=== PATIENT | male | born 1945 | race Caucasian/White ===

== ENCOUNTER → 2016-07-14 | Outpatient (CLI) | payer OTHER, MEDICARE ==
[~2016-07-14] MED LIST: IOPAMIDOL (ISOVUE-300) 100 ML BTL IV ONE
--- NOTE | 2016-07-14 14:21 | CT ---
CT Scan of Neck Soft Tissues (With Contrast Enhancement) at 1134 hours History: C32.9, malignant neoplasm of the larynx. Squamous cell carcinoma of the larynx. Smoker. COMPARISON: None available. Technique: Axial computed tomographic images of the neck soft tissues obtained from the sternoclavicu lar joint to the skull base during the uneventful intravenous administration of 100 mL Isovue-300 con trast. Dose reduction techniques were utilized. Findings: Centrilobular emphysema noted in the lung apices. Slightly lobulated contour of bilateral t rue vocal cord regions without definite destructive osseous lesions of the thyroid or cricoid cartila ge. Airway appears patent. Paranasal sinuses are clear. Bilateral parotid and submandibular glands appear homogeneous without ma sses. There are several scattered predominantly subcentimeter neck lymph nodes in the posterior cervi wale spaces, submental spaces without significant adenopathy. Mild atherosclerotic calcification of th e carotid arteries. No evidence of jugular vein thrombosis. Thyroid gland appears homogeneous without masses or enlargement. Previous anterior cervical diskectomy at C3-C4 with C5-C6 and C6-C7 moderate degenerative disk disease, posterior laminectomies at C3 and C4 with transpedicular screws. No defini te destructive osseous lesions. Impression: 1. Nodular contour of both sides of the true vocal cord, which is nonspecific. 2. No definite destruction of the cricoid or thyroid cartilage. 3. Several nonspecific predominantly subcentimeter scattered bilateral neck lymph nodes anteriorly an d posteriorly without significant adenopathy. 4. No definite parotid or submandibular masses. 5. Centrilobular emphysema at the lung apices.
== END ==
LOC: CIMAGING 11:02
PROVIDERS: ATTEND Otolaryngology
DX: J43.9 Emphysema, unspecified (principal); J38.2 Nodules of vocal cords; M50.322 Other cervical disc degeneration at C5-C6 level; M50.323 Other cervical disc degeneration at C6-C7 level; C32.9 Malignant neoplasm of larynx, unspecified
CPT/HCPCS: 70491; Q9967

== ENCOUNTER → 2016-09-26 | Outpatient (CLI) | payer OTHER, MEDICARE | LOC: CIMAGING 09:48 | PROVIDERS: ATTEND Internal Medicine | DX: M79.672 Pain in left foot (principal) | CPT/HCPCS: 73630-PO; G0463-PO ==

== ENCOUNTER 2016-11-25 07:00 | Inpatient (IN) | payer OTHER, MEDICARE ==
[2016-11-25] MEDS ORDERED: POLYMYXIN B SULFATE 500,000 UNIT/10 ML SYR IRR ONE (07:02)
[2016-11-25] MEDS ORDERED: BUPIVACAINE 0.5% 30 ML SDV ONE (07:02)
[2016-11-25] MEDS ORDERED: BACITRACIN 50,000 UNITS/10 ML SYR IRR ONE (07:02)
[2016-11-25] MEDS ORDERED: LIDOCAINE 1% 2 ML INJ ONE (07:38)
[2016-11-25] MEDS ORDERED: POVIDONE-IODINE 20 ML in SODIUM CL IRRIG SOLUTION 500 ML IRR ONE (08:00)
[2016-11-25] MEDS ORDERED: ACETAMINOPHEN 500 MG TAB PO ONE (08:00)
[2016-11-25] MEDS ORDERED: CHLORHEXIDINE GLUC HIBICLENS 118 ML BTL TP ONE (08:00)
[2016-11-25 08:30] LABS: INR 0.99 (0.83-1.16)
[2016-11-25] MEDS ORDERED: PROPOFOL 200 MG/20 ML VIAL ONE (08:35)
[2016-11-25] MEDS ORDERED: fentaNYL 100 MCG/2 ML INJ ONE ×5 (08:35→11:37)
[2016-11-25] MEDS ORDERED: LIDOCAINE 2% 100 MG/5 ML SYR ONE (08:36)
[2016-11-25] MEDS ORDERED: ROCURONIUM 50 MG/5 ML VIAL ONE (08:36)
[2016-11-25] MEDS ORDERED: MIDAZOLAM 2 MG/2 ML VIAL ONE (08:39)
[2016-11-25] MEDS ORDERED: LIDOCAINE 1% 5 ML SDV ID PRN (08:49)
[2016-11-25] MEDS ORDERED: LR 1,000 ML IV ONE (08:49)
[2016-11-25] MEDS ORDERED: THROMBIN (BOVINE) 5,000 UNIT VIAL TP ONE (08:58)
[2016-11-25] MEDS ORDERED: CALCIUM CHLORIDE 1 GM/10 ML INJ ONE (08:59)
[2016-11-25] MEDS ORDERED: CLINDAMYCIN 900 MG/DEXTROSE 50 ML IV ONE (09:00)
[2016-11-25] MEDS ORDERED: BUPIVACAINE/EPI 0.5% 30 ML SDV ONE (10:39)
[2016-11-25] MEDS ORDERED: KETOROLAC 30 MG/1 ML SDV ONE (10:40)
[2016-11-25] MEDS ORDERED: DEXAMETHASONE 4 MG/ML VIAL ONE ×2 (10:42)
[2016-11-25] MEDS ORDERED: TEMAZEPAM 15 MG CAP PO PRN (11:18)
[2016-11-25] MEDS ORDERED: LACTULOSE 20 GM/30 ML UDCUP PO PRN (11:18)
[2016-11-25] MEDS ORDERED: diphenhydrAMINE 25 MG CAP PO PRN (11:18)
[2016-11-25] MEDS ORDERED: TAPENTADOL HCL 50 MG TAB PO PRN (11:18)
[2016-11-25] MEDS ORDERED: PHARMACY PAIN CONSULT 1 EA MISC PRN (11:18)
[2016-11-25] MEDS ORDERED: ONDANSETRON 4 MG/2 ML VIAL IVP PRN (11:18)
[2016-11-25] MEDS ORDERED: ONDANSETRON DISINTEGRATING 4 MG TAB PO PRN (11:18)
[2016-11-25] MEDS ORDERED: METOCLOPRAMIDE 10 MG/2 ML VIAL IVP PRN (11:18)
[2016-11-25] MEDS ORDERED: PROMETHAZINE HCL 25 MG/ML INJ IVP PRN (11:18)
[2016-11-25] MEDS ORDERED: DIPHENOXYLATE/ATROPINE LOMOTIL 1 TAB PO PRN (11:18)
[2016-11-25] MEDS ORDERED: BISACODYL 10 MG SUPP PR PRN (11:18)
[2016-11-25] MEDS ORDERED: PROMETHAZINE HCL 25 MG SUPPR PR PRN (11:18)
[2016-11-25] MEDS ORDERED: MAGNESIUM HYDROXIDE 30 ML UDCUP PO PRN (11:18)
--- NOTE | 2016-11-25 11:18 | POSTOPPROG ---
Post Op Note Date of Operation: 11/25/16 Surgeon: Debbie Barfield Paper Tube Machine Operator: kee Anesthesiologist: imani Anesthesia: GET(General Endotracheal) Pre-op Diagnosis: l subtalar oa and os trigonum impingement Procedure: l subtalar fusion and os trigonum exc with fluoro Inf/Abcess present in the surg proc area at time of surgery?: No Depth: Deep Incisional (Fascial) EBL: 50-100
[2016-11-25] MEDS ORDERED: ONDANSETRON 4 MG/2 ML VIAL ONE (11:54)
[2016-11-25] MEDS ORDERED: oxyCODONE IR 5 MG TAB ONE ×2 (12:05→12:27)
--- NOTE | 2016-11-25 13:13 | GOP ---
[f rep st] OPERATIVE REPORT DATE OF OPERATION: 11/25/2016 SURGEON: Debbie Barfield MD DISPLAY DIRECTOR: YANIRA PatA, LSA, whose presence was medically necessary. ANESTHESIA: Endotracheal intubation. 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 PROCEDURE PERFORMED: Left open subtalar fusion with fluoroscopy and os trigonum excision with fluor oscopy. FINDINGS: INDICATIONS: This is a 71-year-old male with a several-month history of left ankle and foot pain, w orsening with use and with time, despite multiple conservative measures. MRI revealed severe osteoa rthritic changes in the subtalar joint, along with a large os trigonum, with increased uptake second diamond to impingement and plantar flexion. He wishes to have surgery in order to resolve the problem. DESCRIPTION OF PROCEDURE: The patient was brought to the operating room after the left side had bee n identified as the correct side by the patient, nurse, and physician. Once in the operating room, he was placed under general anesthesia using endotracheal intubation. Once asleep, he was placed in a lazy lateral position with the left side up. He had a tourniquet placed around the upper portion of the left calf with the left lower extremity sterilely prepped and draped in the usual fashion us ing GSI solution. Once prepped and draped, the limb was exsanguinated, tourniquet inflated to 250 m mHg. A curvilinear incision was made, starting at the base of the 4th metatarsal and extending bene ath the fibula, toward the Achilles, in order to gain enough access on the os trigonum. Sharp disse ction was carried down through the skin and subcutaneous layers. Blunt dissection was done around t he peroneal tendons, with dissection carried onto the top of the calcaneus to guide dissection towar d the posterior portion of the talus. However, due to what appeared to be bleeding associated with venous tourniquet, the tourniquet was released at 18 minutes in order to allow further dissection wi thout having the extensive amount of venous bleeding, and it did indeed decrease bleeding. Once a p ortion of the os trigonum had been excised, attention was turned to the subtalar joint, which was ex posed, and a laminar nanny babysitter placed within the subtalar joint. Curette was used to remove any phuong ining cartilage on the subtalar joint with an osteotome used to remove the far medial portion of the os trigonum from below. Osteotome was used to score the undersurface of the talus at its concave p ortion, and onto the superior portion of the calcaneus on its convex portion, until achieving bleedi ng bone. A portion of bone removed from the os trigonum was morcellized, placed within the subtalar joint, and once in the subtalar joint, joint was compressed. It was checked under fluoroscopy, not ed to have good fit of the 2 joints. A guidewire was placed through the calcaneus posteriorly just above the glabrous border, and under fluoroscopy was introduced perpendicularly across the subtalar joint into the talus. It was checked using fluoroscopy on the AP and lateral projections to ensure proper placement within the talus. The 2 guidewires were measured to be at 80 and 85 mm. They were over drilled at the calcaneal surface, and then 6.5 mm cannulated screws were then drilled through the calcaneus into the talus, achieving compression across the talocalcaneal joint. Once completed, fluoroscopy was again used to check to ensure proper placement of the screws. Once this was ensure d, the wound was thoroughly irrigated with antibiotic solution. Plasma gel was placed within the giordano btalar joint, and the wound was then closed using 0 Vicryl suture in an inverted interrupted stitch for the deep subcutaneous layers, 2-0 Vicryl sutures for the subcutaneous layers, and a 3-0 V-Loc giordano ture for the skin. 2-0 Prolene was used to close the puncture wounds associated with the calcaneal incisions. Wound was dressed with Steri-Strips, Xeroform, 4 x 4's, wrapped in Kerlix. Leg was comp letely undraped in the operating room. Tourniquet was removed from the calf. Zane wrap was placed a round the foot and ankle. He was then placed in a Cam walker boot in neutral position. 10 cc of Ma rcaine was infused around the lateral wound with 5 cc around the heel. He was then woken up, extuba lawrence, transferred onto a stretcher, and sent to recovery room in good condition. TOURNIQUET TIME: 18 minutes. /[id number]/MODL
[2016-11-25] MEDS: CYCLOBENZAPRINE 10 MG TAB PO PRN (14:15)
[2016-11-25] MEDS: ACETAMINOPHEN 325 MG TAB PO SCH ×3 (14:43→23:35)
[2016-11-25] MEDS: traMADol 50 MG TAB PO SCH ×3 (14:48→23:35)
[2016-11-25] MEDS: oxyCODONE IR 5 MG TAB PO PRN ×2 (15:06→20:25)
[2016-11-25] MEDS ORDERED: NALOXONE HCL 0.4 MG/ML INJ IVP PRN (16:26)
[2016-11-25] MEDS: HYDROmorphONE/DILAUDID 6 MG/30 ML PCA IV PRN ×2 (16:41→23:36)
[2016-11-25] MEDS: CLINDAMYCIN 600 MG/DEXTROSE 50 ML IV SCH (17:38)
[2016-11-25] MEDS: FAMOTIDINE 20 MG TAB PO SCH (20:24)
[2016-11-25] MEDS: SENNOSIDES/DOCUSATE SODIUM TAB PO SCH (20:25)
[2016-11-26] MEDS: CYCLOBENZAPRINE 10 MG TAB PO PRN ×2 (00:51→12:29)
[2016-11-26] MEDS: CLINDAMYCIN 600 MG/DEXTROSE 50 ML IV SCH ×2 (00:51→10:02)
[2016-11-26 04:48] LABS: HEMATOCRIT 42.3 % (40.0-51.0); HEMOGLOBIN 14.4 g/dL (13.7-17.5)
[2016-11-26] MEDS: ACETAMINOPHEN 325 MG TAB PO SCH ×3 (05:30→17:56)
[2016-11-26] MEDS: traMADol 50 MG TAB PO SCH ×3 (05:30→17:56)
[2016-11-26] MEDS: HYDROmorphONE/DILAUDID 6 MG/30 ML PCA IV PRN ×2 (05:59→22:14)
[2016-11-26] MEDS: FAMOTIDINE 20 MG TAB PO SCH ×2 (07:56→20:35)
[2016-11-26] MEDS: oxyCODONE IR 5 MG TAB PO PRN ×2 (07:56→12:27)
[2016-11-26] MEDS: SENNOSIDES/DOCUSATE SODIUM TAB PO SCH ×2 (07:57→20:35)
[2016-11-26] MEDS: POLYETHYLENE GLYCOL 3350 17 GM PKT PO PRN (07:57)
[2016-11-26] MEDS: LR 1,000 ML IV SCH ×2 (12:33→20:34)
--- NOTE | 2016-11-26 14:38 | SOAPPROG ---
SOAP Progress Note Assessment/Plan: Assessment: Plan: Subjective: states he has pain and can't swallow dressing C&D with foot grossly NVI although mild decrease in sensation cont NWB DC abx swallow eval Objective: Vital Signs Temp Pulse Resp BP Pulse Ox 36.6 C 73 18 102/56 L 92 11/26/16 11:34 11/26/16 11:34 11/26/16 11:34 11/26/16 11:34 11/26/16 11:34 Laboratory Results 11/26/16 04:19 11/25/16 11/26/16 11/27/16 05:59 05:59 05:59 Intake Total 2330 Output Total 725 Balance 1605 PT 13.0 SEC (12.0-15.0) 11/25/16 08:05 INR 0.99 (0.83-1.16) 11/25/16 08:05 ICD10 Worksheet Patient Problems: Problems Problem Status Onset Status post cervical arthrodesis Acute
[2016-11-27] MEDS: ACETAMINOPHEN 325 MG TAB PO SCH ×5 (00:26→23:08)
[2016-11-27] MEDS: traMADol 50 MG TAB PO SCH ×6 (00:28→23:09)
[2016-11-27] MEDS: LR 1,000 ML IV SCH (04:14)
[2016-11-27] MEDS: HYDROmorphONE/DILAUDID 6 MG/30 ML PCA IV PRN ×2 (04:19→09:07)
[2016-11-27 05:29] LABS: HEMOGLOBIN 13.7 g/dL (13.7-17.5)
[2016-11-27] MEDS: FAMOTIDINE 20 MG TAB PO SCH ×3 (07:58→21:00)
[2016-11-27] MEDS: SENNOSIDES/DOCUSATE SODIUM TAB PO SCH ×3 (07:58→20:59)
[2016-11-27] MEDS: oxyCODONE IR 5 MG TAB PO PRN ×3 (11:11→23:09)
[2016-11-27] MEDS: CYCLOBENZAPRINE 10 MG TAB PO PRN (13:27)
--- NOTE | 2016-11-27 18:53 | SOAPPROG ---
SOAP Progress Note Assessment/Plan: Assessment: Plan: Subjective: states his pain is better controlled with dilaudid and that is allowed to swallow solids more than liquids dressing C&D with toes grossly NVI plan for DC in morning. Objective: Vital Signs Temp Pulse Resp BP Pulse Ox 36.9 C 66 18 119/64 96 11/27/16 15:35 11/27/16 15:35 11/27/16 15:35 11/27/16 15:35 11/27/16 15:35 Laboratory Results 11/27/16 04:33 11/26/16 11/27/16 11/28/16 05:59 05:59 05:59 Intake Total 2330 1500 Output Total 725 400 Balance 1605 1500 -400 PT 13.0 SEC (12.0-15.0) 11/25/16 08:05 INR 0.99 (0.83-1.16) 11/25/16 08:05 ICD10 Worksheet Patient Problems: Problems Problem Status Onset Status post cervical arthrodesis Acute
[2016-11-27] MEDS ORDERED: HYDROmorphONE/DILAUDID 4 MG TAB PO PRN (19:01)
[2016-11-28] MEDS: HYDROmorphONE/DILAUDID 4 MG TAB PO PRN ×3 (03:04→15:03)
[2016-11-28] MEDS: traMADol 50 MG TAB PO SCH ×3 (05:45→17:33)
[2016-11-28] MEDS: ACETAMINOPHEN 325 MG TAB PO SCH ×3 (05:45→17:32)
[2016-11-28 07:38] VITALS: RESP 14
[2016-11-28] MEDS: SENNOSIDES/DOCUSATE SODIUM TAB PO SCH (08:02)
[2016-11-28] MEDS: CYCLOBENZAPRINE 10 MG TAB PO PRN (08:03)
[2016-11-28] MEDS: POLYETHYLENE GLYCOL 3350 17 GM PKT PO PRN (08:04)
[2016-11-28] MEDS: FAMOTIDINE 20 MG TAB PO SCH (08:04)
[2016-11-28 11:29] VITALS: PULSE 63; TEMP 98.5; O2SAT 96
--- NOTE | 2016-11-28 15:47 | PDIAF ---
- Diagnosis Code Status: Full Code - Medication Management Discharge Medications: Medications to Continue on Transfer Sertraline HCl [Zoloft 50mg (*)] 50 mg PO DAILY 06/21/14 [Last Taken 11/25/16] Hydrocodone/Acetaminophen [[place] 7.5-325 Tablet] 1 each PO Q4-6PRN PRN 06/18/16 [Last Taken 11/24/16] Minocycline HCl [Minocin 50 mg (*)] 50 mg PO BID 06/18/16 [Last Taken 11/25/16] Warfarin Sodium [Coumadin 7.5MG (*)] 7.5 mg PO DAILY16 06/18/16 [Last Taken ] Acetaminophen [Tylenol 325mg (*)] 325 mg PO DAILY PRN 11/25/16 [Last Taken 11/24] Acetaminophen [Tylenol 325mg (*)] 650 mg PO Q6HRS #0 tab 11/27/16 [Last Taken Unknown] HYDROmorphone HCL [Dilaudid 4 mg (*)] 4 mg PO Q4HRS PRN #0 tab 11/27/16 [Last Taken Unknown] HYDROmorphone HCL [Dilaudid 4 mg (*)] 4 mg PO Q4HRS PRN #30 tab 11/27/16 [Last Taken Unknown] oxyCODONE CR [Oxycontin] 10 mg PO Q12 #20 tab 11/27/16 [Last Taken Unknown] Discharge Medications: Refer to the Discharge Home Medication list for PRN reason. PICC Care - Routine: N/A - Orders Services needed: Home Care, Registered Nurse, Physical Therapy Home Care Face to Face: I certify that this patient was under my care and that I had the required [id number] encounter meeting the encounter requirements on the discharge day. My findings support the fact that the patient is homebound as defined in CMS Chapter 7 Medicare Benefits Manual 30.1.1, The condition of the patient is such that there exists a normal inability to leave home and consequently, leaving home would require a considerable and taxing effort. Diet Recommendation: other Diet Texture: Honey Thick Liquids - Follow Up Care Current Providers and Referrals: Alvin Bonds MD [Primary Care Provider] - Debbie Barfield MD [Medical Doctor] -
[2016-11-28 17:38] VITALS: BP 144/88
== END 2016-11-28 17:55 | DRG 505 ==
LOC: FSGY 07:00 → INTOOBSV 11:19 → F3N 11:19 → OBSVTOIN 11-26 19:50
PROVIDERS: ADMIT Orthopaedic Surgery; ATTEND Orthopaedic Surgery
PROC: 0SGJ04Z Fusion of Left Tarsal Joint with Internal Fixation Device, Open Approach (ICD-10-PCS; principal; 2016-11-25 08:45)
PROC: 0QBM0ZZ Excision of Left Tarsal, Open Approach (ICD-10-PCS; principal; 2016-11-25 08:45)
DX: M19.072 Primary osteoarthritis, left ankle and foot (principal); M25.872 Other specified joint disorders, left ankle and foot; M24.072 Loose body in left ankle; R13.10 Dysphagia, unspecified
CPT/HCPCS: 92610-GN; 92611-GN; 97116-GP; 97162-GP; 97165-GO; 97535-GO; C1713; C1769; G8978-GP-CK; G8979-GP-CI; G8987-GO-CK; G8988-GO-CI; G8989-GO-CJ; G8996-GN-CH; G8996-GN-CJ; G8997-GN-CH; G8997-GN-CI; G8998-GN-CH; J1100; J1170; J1885; J2001; J2250; J2405; J2704; J3010

== ENCOUNTER → 2017-02-05 | Outpatient (CLI) | payer OTHER, MEDICARE ==
[~2017-02-05] MED LIST changes: -IOPAMIDOL (ISOVUE-300) 100 ML BTL IV ONE; +IOPAMIDOL (ISOVUE-300) 100 ML BTL ONE
== END ==
LOC: CIMAGING 14:50
PROVIDERS: ATTEND Internal Medicine
DX: T85.79XA Infection and inflammatory reaction due to other internal prosthetic devices, implants and grafts, initial encounter (principal); K43.9 Ventral hernia without obstruction or gangrene
CPT/HCPCS: 74177; Q9967; 82565-PO

== ENCOUNTER → 2017-07-24 | Outpatient (CLI) | payer OTHER | LOC: FIMAGING 15:58 | PROVIDERS: ATTEND Orthopaedic Surgery | DX: M19.072 Primary osteoarthritis, left ankle and foot (principal); R60.9 Edema, unspecified ==

== ENCOUNTER → 2018-02-09 | Outpatient (CLI) | payer OTHER | LOC: CIMAGING 14:09 | PROVIDERS: ATTEND Internal Medicine | DX: R60.9 Edema, unspecified (principal); M25.561 Pain in right knee ==

== ENCOUNTER 2018-04-13 09:01 | Day surgery (SDC) | payer OTHER ==
--- NOTE | 2018-04-13 05:44 | GHP ---
CURRENT COMPLAINT: Left foot pain. HISTORY OF PRESENT ILLNESS: The patient is a 73-year-old male who had previously undergone a left fo ot subtalar fusion nearly 18 months ago. He states that the heal itself had been doing fine, but he has developed pain into the heel around the area of the screw heads. He would like to have them jeff juan alberto. ALLERGIES: Include Compazine. CURRENT MEDICATIONS: Include buprenorphine, diazepam, diclofenac, furosemide, lorazepam, minocycline , mupirocin, pantoprazole, prednisone, ranitidine, sertraline, Suboxone and warfarin. PAST MEDICAL HISTORY: Primary medical problems include arthritis, hepatitis, ulcers. PAST SURGICAL HISTORY: Surgeries include spine surgery, right arm surgery and a subtalar arthrodesis on the left side. SOCIAL HISTORY: He is a 1 pack-a-day smoker. He is not a drinker. PHYSICAL EXAMINATION: EYES: Pupils are equal, round, and reactive to light. CHEST: Clear to auscu ltation. HEART: Regular rate and rhythm. ABDOMEN: Soft and nontender. EXTREMITIES: He has no mo tion of the subtalar joint, as expected, but is tender to the palpable screw heads noted in the heel. ASSESSMENT AND PLAN: Patient is status post a left foot subtalar fusion with tender hardware. The p yen is to take him to the operating room to undergo a hardware removal of the left foot. /[id number]/MODL
[2018-04-13] MEDS ORDERED: LR 1,000 ML IV SCH (09:08)
[2018-04-13] MEDS ORDERED: ACETAMINOPHEN 500 MG TAB PO ONE (09:08)
[2018-04-13] MEDS ORDERED: VANCOMYCIN PHARMACY TO DOSE MISC ONE (09:08)
[2018-04-13] MEDS ORDERED: LR 1,000 ML IV ONE (09:11)
[2018-04-13] MEDS ORDERED: VANCOMYCIN 1.5 GM in NS 250 ML IV ONE (09:30)
[2018-04-13] MEDS ORDERED: BUPIVACAINE 0.5% 30 ML SDV ONE (10:20)
[2018-04-13] MEDS ORDERED: ONDANSETRON 4 MG/2 ML VIAL ONE (10:55)
[2018-04-13] MEDS ORDERED: LIDOCAINE 2% 5 ML SDV ONE (10:55)
[2018-04-13] MEDS ORDERED: PHENYLEPHRINE HCL 100 MCG/ML SYR ONE (10:55)
[2018-04-13] MEDS ORDERED: fentaNYL 100 MCG/2 ML INJ ONE ×2 (10:56→13:19)
[2018-04-13] MEDS ORDERED: PROPOFOL 200 MG/20 ML VIAL ONE (10:56)
--- NOTE | 2018-04-13 11:26 | PDHPUP ---
History & Physical Update H&P update statement: This history and physical update is based on an assessment of the patient which was completed after admission or registration (within 24 hours), but prior to the surgery/procedure. H&P update: H&P reviewed & patient examined, no change in patient's condition since H&P completed
[2018-04-13] MEDS ORDERED: MIDAZOLAM 2 MG/2 ML VIAL ONE (11:40)
[2018-04-13] MEDS ORDERED: MIDAZOLAM 2 MG/2 ML VIAL IVP ONE (11:41)
--- NOTE | 2018-04-13 11:44 | PDANEPAE ---
ANE History of Present Illness ankle hardware that needs to be removed, here for that procedure ANE Past Medical History - Cardiovascular History Hx Hypertension: No Hx Arrhythmias: No Hx Chest Pain: No Hx Coronary Artery / Peripheral Vascular Disease: No Hx CHF / Valvular Disease: No Hx Palpitations: No Cardiovascular History Comment: hx of dvt RLE 04/05/15. hx BLE edema w/blisters - Pulmonary History Hx COPD: Yes Hx Asthma/Reactive Airway Disease: No Hx Recent Upper Respiratory Infection: No Hx Oxygen in Use at Home: Yes O2 in Use at Home (L/minute): 2l/NC @ noc Hx Sleep Apnea: Yes Sleep Apnea Screening Result - Last Documented: Positive Pulmonary History Comment: QUENTIN positive - no Cpap but uses O2 at noc - Neurologic History Hx Cerebrovascular Accident: No Hx Seizures: No Hx Dementia: No Neurologic History Comment: numbness in thumb and 1st fingers on bilat hands - Endocrine History Hx Diabetes: No - Renal History Hx Renal Disorders: No - Liver History Hx Hepatic Disorders: No - Neurological & Psychiatric Hx Hx Neurological and Psychiatric Disorders: Yes Neurological / Psychiatric History Comment: depression - Cancer History Hx Cancer: Yes Cancer History Comment: throat CA w/radiation, 2016 - Congenital Disorder History Hx Congenital Disorders: No - GI History Hx Gastrointestinal Disorders: No Gastrointestinal History Comment: hx of ulcer - Other Health History Other Health History: wears glasses for reading. upper & lower dentures. chronic low back pain - uses suboxone SL daily. legs swell and gets small blisters - scheduled to go to wound clinic for tx. gets boils on scalp - takes minocycline as tx for - Chronic Pain History Chronic Pain: Yes (low back) - Surgical History Prior Surgeries: Left ankle fusion 11/2016. MICROLARYNGOSCOPY WITH BX 05/2016. c3-4 lami 06/21/14. 6 lumbar spine surgeries. Abdominal surgery ANE Review of Systems Review of Systems: - Exercise capacity METS (RN): 4 METS ANE Patient History - Allergies Allergies/Adverse Reactions: cephalexin monohydrate [From Keflex] Allergy (Verified 04/12/18 11:05) joint swelling prochlorperazine edisylate [From Compazine] Allergy (Verified 04/12/18 11:05) Swelling/neck, face, throat prochlorperazine maleate [From Compazine] Allergy (Verified 04/12/18 11:05) Swelling/neck, face, throat - Home Medications Home Medications: Sertraline HCl [Zoloft 50mg (*)] DAILY 06/21/14 [Last Taken 04/12/18] Minocycline HCl [Minocin 50 mg (*)] BID 06/18/16 [Last Taken 04/12/18] SUBOXONE 2mg/0.5mg 04/12/18 [Last Taken 04/11/18] - NPO status NPO Since - Liquids (Date): 04/13/18 NPO Since - Liquids (Time): 07:00 NPO Since - Solids (Date): 04/12/18 NPO Since - Solids (Time): 19:00 - Smoking Hx Smoking Status: Current every day smoker - Family Anes Hx Family Hx Anesthesia Complications: none ANE Labs/Vital Signs - Vital Signs Blood Pressure: 133/70 Heart Rate: 68 Respiratory Rate: 18 O2 Sat (%): 92 Height: 170.18 cm Weight: 102.058 kg ANE Physical Exam - Airway Neck exam: decreased ROM Mallampati Score: Class 4 Mouth exam: normal dental/mouth exam - Pulmonary Pulmonary: reduced air movement, expiratory wheeze - Cardiovascular Cardiovascular: regular rate and rhythym, edema - ASA Status ASA Status: III (distant heart sounds, difficulty hearing. functional capacity normal for him per his report) ANE Anesthesia Plan Anesthesia Plan: GA w LMA Total IV Anesthesia: No
[2018-04-13] MEDS ORDERED: OXYCODONE/APAP 5/325 TAB PO PRN (12:54)
[2018-04-13] MEDS ORDERED: ACETAMINOPHEN 325 MG TAB PO PRN (12:54)
[2018-04-13] MEDS ORDERED: ONDANSETRON 4 MG/2 ML VIAL IVP PRN (12:54)
--- NOTE | 2018-04-13 12:54 | POSTOPPROG ---
Post Op Note Date of Operation: 04/13/18 Surgeon: Debbie Barfield Anesthesia: GET(General Endotracheal) Pre-op Diagnosis: l heel retained hardware Procedure: l heel DAYNE with fluoro Inf/Abcess present in the surg proc area at time of surgery?: No Depth: Deep Incisional (Fascial) EBL: 50-100
[2018-04-13] MEDS ORDERED: OXYCODONE/APAP 5/325 TAB ONE (13:27)
[2018-04-13] MEDS ORDERED: MEPERIDINE 25 MG/0.5 ML AMP IVP PRN (13:43)
[2018-04-13] MEDS ORDERED: fentaNYL 100 MCG/2 ML INJ IVP PRN (13:43)
[2018-04-13] MEDS ORDERED: DEXAMETHASONE 4 MG/ML VIAL IVP PRN (13:43)
[2018-04-13] MEDS ORDERED: NALOXONE HCL 0.4 MG/ML INJ IVP PRN (13:43)
[2018-04-13] MEDS ORDERED: HYDROmorphONE/DILAUDID 2 MG/ML INJ ONE (13:52)
[2018-04-13] MEDS: HYDROmorphONE/DILAUDID 2 MG/ML INJ IVP PRN ×2 (13:54→14:02)
[2018-04-13] MEDS ORDERED: ROPIVACAINE HCL 150 MG/30 ML INJ ONE (13:56)
--- NOTE | 2018-04-13 14:11 | GOP ---
DATE OF OPERATION: 04/13/2018 SURGEON: Debbie Barfield MD ANESTHESIA: By endotracheal intubation. PREOPERATIVE DIAGNOSIS: Status post left subtalar fusion with painful hardware. POSTOPERATIVE DIAGNOSIS: Status post left subtalar fusion with painful hardware. PROCEDURE PERFORMED: Left heel removal of hardware with fluoroscopy. FINDINGS: INDICATIONS: This is a 73-year-old male who approximately 18 months ago had undergone a left subtala r fusion. That went well; however, the screw heads in his heel are starting to cause pain. He would like them removed. DESCRIPTION OF PROCEDURE: Patient brought to the operating room and after the left side had been craig ntified as correct side by the patient, nurse, and physician. Once in the operating room, he was john kareem under general anesthesia using endotracheal intubation. Once asleep, he was placed in a lazy lat eral position with a tourniquet placed around the upper portion of the left thigh. Left lower extrem ity was then sterilely prepped and draped in the usual fashion using GSI solution. Once prepped and draped, the limb was exsanguinated, tourniquet inflated to 250 mmHg. Using prior incisions, 2 incisions were made on the posterior portion of the heel just above the glab minal border, with blunt dissection carried down deeper. Fluoroscopy was used to identify the exact p osition of the screw heads, at which point, a screwdriver was used to back out the screws. Both of t hem came out relatively easily. The 2 wounds were then thoroughly irrigated with antibiotic solution, closed in layers to include 2-0 Vicryl suture for the deep subcutaneous layers and a 3-0 Prolene suture in a [id number] type st itch for the skin. 20 cc of Marcaine without epinephrine was infused around the area around the heel and incisions. Tourniquet was released at 30 minutes. The wounds were dressed with Xeroform, 4 x 4 , wrapped in Kerlix. Leg was completely undraped in the operating room, tourniquet removed from the thigh, and an Zane wrap placed around the foot and ankle. Once completed, the patient was extubated, transferred onto a stretcher, and sent to recovery room in good condition. TOURNIQUET TIME: 30 minutes. /[id number]/MODL
--- NOTE | 2018-04-13 14:40 | POSTANESTH ---
Post Anesthetic Evaluation Cardiovascular Status: Normal, Stable, Similar to Pre-Op Cond Respiratory Status: Normal, Stable, Similar to Pre-op Cond. Level of Consciousness/Mental Status: Can Participate in Eval Pain Control: Inadeq, Add Tx Required Nausea/Vomiting Control: Adequate, Prn Tx Ordered Complications Possibly Related to Anesthesia: None Noted (Patient on 10mg/24h suboxone and has been off for 48 hours. His pain in PACU was at a 6 and ecalated to a 9/10 when I came into evaluate him. I offered a popliteal and or an adductor canal block. Patient described the pain on dorsomedial aspect of the foot ad some crossover into the medial ankle. We removed the Steve Hose ad he was significantly better. Pain from 9-5/10. We discussed the block ayway and attempted a popliteal with US. His anatomy was so distorted I could not ID the popliteal artery and attempted to stim the nerve without success. Dr. Canales came to assist briefly. The patient became aggitated and frustrated so we aborted the procedure The patient understands given his current pain regimen he may have significant discomfort over the following several days despite perscribed medications. He was comfortable returning home with a pain level of less than 8/10 on his outpatient perscriptions DC'd to pre-op comfortable and without questions or complaints)
[2018-04-13 15:48] VITALS: BP 126/67
== END 2018-04-13 15:58 | disposition home or self-care (01) ==
LOC: FSGY 09:01
PROVIDERS: ATTEND Orthopaedic Surgery
DX: T84.84XA Pain due to internal orthopedic prosthetic devices, implants and grafts, initial encounter (principal); F17.210 Nicotine dependence, cigarettes, uncomplicated; G47.33 Obstructive sleep apnea (adult) (pediatric)
CPT/HCPCS: J1170; J2250; J2370; J2405; J2704; J2795; J3010; J3370

== ENCOUNTER 2018-09-06 13:57 | Emergency (ER) | payer OTHER ==
--- NOTE | 2018-09-06 15:08 | EDPHY ---
General Time Seen by Provider: 09/06/18 14:44 Narrative: CLINICAL IMPRESSION: R > L leg swelling ASSESSMENT/PLAN: 73-year-old male presents to the emergency department with several weeks of right greater than left lower leg swelling. Patient reports a history of a right DVT. He is not currently anticoagulated. The right leg is mildly warm to the touch, superficial oozing wounds with no bleeding suggestive of chronic venous stasis. Ultrasound read by Radiology with no evidence of acute DVT although a poorly visualized peroneal vein and repeat ultrasound recommended in 7-10 days if symptoms persist. Patient has no coinciding chest pain, pleuritic discomfort or shortness of breath. Given the mild erythema and oozing wounds of the right leg he will be treated for a mild cellulitis with Keflex. I encouraged follow-up with primary care in 24-48 hours. Repeat ultrasound in 7- 10 days if needed. Warning signs return to ED sooner outlined and discharge. Case discussed with Dr. Uriostegui. DIFFERENTIAL DX: Differential includes but not limited to DVT, cellulitis, necrotizing fasciitis , compartment syndrome, rhabdomyolysis, CHF ED PROCEDURES: See lab and/or imaging results below ED COURSE: 3:00 p.m.: Patient seen assessed by myself. Plan for ultrasound to rule out DVT. Low suspicion of necrotizing fasciitis, deep space abscess, compartment syndrome, rhabdomyolysis. 4:00 P.M.: Ultrasound discussed with Radiology, no evidence of acute DVT. Poorly visualized perineal vein which was also poorly visualized on prior exam. Recommend repeat ultrasound in 7-10 days if symptoms persist. Will plan to give antibiotic to cover possible mild cellulitis. Encouraged PCP follow-up. CHIEF COMPLAINT: Leg swelling HPI: 73-year-old male with a history of multiple cervical and lumbar spine fusions, COPD, QUENTIN, and chronic pain as well as a history of right-sided DVT, presents to the emergency department with right greater than left lower leg swelling, superficial blisters and weeping of the skin over the last 2 weeks. Patient has not seen anyone for this. He reports a history of DVT in the right leg many years ago, took anticoagulation therapy for 1 year but is not currently anticoagulated. No reports of trauma or injury. No recent air or car travel. No associated chest pain or shortness of breath. He reports some sloughing of the skin on the posterior aspect of the leg. No reports of fever, chills, palpitations, nausea, vomiting. He is not diabetic. No history of lower extremity neuropathy. He does not use compression stockings. He reports swelling is unchanged after elevation and a night of sleeping. PAST MEDICAL HISTORY: Multiple fusions, COPD, QUENTIN, chronic pain, prior DVTs. See triage summary and nurse notes for addition applicable history Pertinent Past Surgical History: Prior C-spine and back fusions Family History: Noncontributory Social History: Regular smoker REVIEW OF SYSTEMS: A full 10 point review of systems was negative except for those mentioned in HPI. PHYSICAL EXAM: General Appearance: Alert, oriented, appropriate, cooperative, morbidly obese, NAD, well hydrated, non-toxic appearing, hypertensive, afebrile, no tachycardia or tachypnea, no hypoxia. Respiratory: There are no retractions, lungs are clear to auscultation. Cardiac: Regular rate and rhythm, no murmurs or gallops. Musculoskeletal: Swelling noted to bilateral lower extremities, chronic venous stasis changes noted. Mild warmth to the right leg compared to left. Tender to palpation of the right calf. Superficial blisters noted on both legs with no open wounds or bleeding. Distal neurovascular exam intact. No proximal leg swelling erythema or warmth. Skin: Warm, dry, no rashes, no nodules on palpation. MEDICAL DECISION MAKING: Patient was seen independently. Secondary supervising physician at time of evaluation was: Dr. Uriostegui . Diagnosis: Right greater than left leg swelling x2 weeks . New, requires workup Summary: See Assessment and Plan for summary of ED visit Independent visualization of images, tracing, or specimens: Yes. Discussed patient with another provider: Dr. Uriostegui, radiology Patient Progress: Stable for discharge. - Diagnostics Imaging Results: Imaging Impressions Extremity Venous Study 09/06/18 14:54 Impression: There is no sonographic evidence of deep or superficial vein thrombosis in the right lower extremity (although there is limited diagnostic assessment of the calf veins with very poor visualization of the peroneal veins) . If the patient should have progression of his symptoms, short-term repeat sonography could be considered. Findings were discussed with Lucas Sands PA-C at 15:56, on 09/06/2018. - History Smoking Status: Current every day smoker - Objective Vital Signs: Initial Vital Signs Temperature (C) 36.9 C 09/06/18 14:15 Heart Rate 77 09/06/18 14:15 Respiratory Rate 18 09/06/18 14:15 Blood Pressure 143/76 H 09/06/18 14:15 O2 Sat (%) 93 09/06/18 14:15 O2 Delivery Mode Room Air Allergies/Adverse Reactions: cephalexin monohydrate [From Keflex] Allergy (Verified 09/06/18 14:15) joint swelling prochlorperazine edisylate [From Compazine] Allergy (Verified 09/06/18 14:15) Swelling/neck, face, throat prochlorperazine maleate [From Compazine] Allergy (Verified 09/06/18 14:15) Swelling/neck, face, throat Home Medications: Medication Instructions Recorded Sertraline HCl [Zoloft 50mg (*)] DAILY 06/21/14 Minocycline HCl [Minocin 50 mg (*)] BID 06/18/16 Cephalexin [Keflex] 500 mg PO QID #28 cap 09/06/18 Hydrocodone/APAP 5/325 [Pendroy 1 - 2 tab PO Q4H PRN #10 tab 09/06/18 5/325 (*)] Departure - Departure Disposition: Home, Routine, Self-Care Clinical Impression: Venous stasis Cellulitis Qualifiers: Site of cellulitis: extremity Site of cellulitis of extremity: lower extremity Laterality: right Qualified Code(s): L03.115 - Cellulitis of right lower limb Condition: Fair Instructions: Venous Insufficiency (DC), Acute Wounds (ED) Additional Instructions: DISCHARGE INSTRUCTIONS FROM YOUR DOCTOR Thank you for visiting our emergency department today. You were treated by a physician post production assistant today and your case was reviewed with our ED Attending physician. Please keep in mind that discharge from the emergency department does not mean that there is nothing wrong - it simply means that we have not identified an emergency condition that requires further evaluation or treatment in the hospital. You should always plan to follow up with primary care for re- evaluation of your condition in the next 2-3 days. If you have been referred to a specialist, please call as soon as possible (today or tomorrow) to schedule your follow up appointment at the appropriate time. YOU HAD AN ULTRASOUND IN THE ED TODAY THAT DID NOT SHOW AN ACUTE BLOOD CLOT BUT ONE OF YOUR DEEP VEINS IN THE LEG IS POORLY VISUALIZED AND WE RECOMMEND REPEATING THE ULTRASOUND OF THE LEG IN 7-10 DAYS IF YOUR SYMPTOMS PERSIST. PLEASE TAKE ANTIBIOTICS PRESCRIBED. ELEVATE THE LEGS AT HOME AND USE COMPRESSION STOCKINGS. PLEASE SEE YOUR PRIMARY CARE DOCTOR IN 1-2 DAYS TO RECHECK. RETURN TO THE ER IMMEDIATELY FOR INCREASED SWELLING, PAIN, REDNESS, WARMTH, FEVER OR CHILLS, CHEST PAIN OR SHORTNESS OF BREATH. DO NOT DRIVE OR DRINK ALCOHOL WHILE TAKING NARCOTIC PAIN MEDICATION. PLEASE BE AWARE, NARCOTICS CAN CAUSE CONSTIPATION, LETHARGY, AND INCREASE YOUR RISK OF FALLING. DO NOT TAKE TYLENOL AT THE SAME TIME VICODIN OR PERCOCET. People present with illnesses and injuries in different ways, and it is always possible that we have missed something. You may always return for re-evaluation if symptoms worsen or if they are not improving or if you develop new/different symptoms. Again, thank you for choosing our emergency department. We hope that you feel better. Referrals: Alvin Bonds MD [Primary Care Provider] - 1-2 days without fail Prescriptions: Cephalexin [Keflex] 500 mg PO QID #28 cap Hydrocodone/APAP 5/325 [Pendroy 5/325 (*)] 1 - 2 tab PO Q4H PRN #10 tab PRN Reason: Pain, Moderate
[2018-09-06 17:05] VITALS: BP 155/76
== END 2018-09-06 17:04 | disposition home or self-care (01) ==
DX: I87.2 Venous insufficiency (chronic) (peripheral) (principal); L03.115 Cellulitis of right lower limb; J44.9 Chronic obstructive pulmonary disease, unspecified; G47.33 Obstructive sleep apnea (adult) (pediatric); Z98.1 Arthrodesis status

== ENCOUNTER 2018-09-11 10:04 | Emergency (ER) | payer OTHER ==
[2018-09-11 10:13] VITALS: BP 134/66
[2018-09-11] MEDS ORDERED: OXYCODONE/APAP 5/325 TAB PO ONE (11:07)
--- NOTE | 2018-09-11 11:27 | EDPHY ---
General Time Seen by Provider: 09/11/18 10:24 Narrative: CLINICAL IMPRESSION: Right leg DVT ASSESSMENT/PLAN: 73 yo male familiar to this provider presents to the ER for the 2nd time in 5 days with complaints of right leg swelling. On ultrasound 5 days ago patient had a poorly visualized right popliteal vein and complains of increasing right greater than left leg pain but is also experiencing left leg pain today. Repeat ultrasound today shows development of nonocclusive thrombus in the right popliteal vein. Ultrasound of the left leg is read as normal. Patient has symmetric temperatures, intact distal and proximal pulses, cap refill intact, no clinical evidence of arterial thrombus. Pain improved with Percocet. Patient was discussed with Dr. Foss and started on Xarelto. I encouraged follow-up with his primary care doctor in 48 hr to recheck. Risks benefits and indications for anticoagulation therapy reviewed with the patient. All questions were answered. Warning signs return to ED sooner outlined and discharge. DIFFERENTIAL DX: Differential includes but not limited to DVT, arterial thrombus, chronic peripheral venous insufficiency, gouty arthritis, cellulitis ED PROCEDURES: See lab and/or imaging results below ED COURSE: Seen and assessed by myself. Vital signs stable. Patient appears uncomfortable but laying comfortably in the bed. 11:45 a.m.: Ultrasound read by Dr. Liang. Patient has now developed a clot in the right popliteal vein, this is not fully occluded, the left leg appears fine. Discussed with Dr. Foss. Will start patient on Xarelto. Results reviewed with patient and patient reassessed. States he is feeling better after Percocet. Leg temperature remains symmetric with good coloration. CHIEF COMPLAINT: Bilateral leg pain HPI: 73-year-old male with a past medical history of chronic back pain previous 4 back surgeries, and distant history of DVT in the right leg, familiar to this provider, seen 5 days ago in the ED for right leg pain, presents to the emergency department today complaining of persistent and slightly worsening right leg pain and 2 days of left leg pain. Patient also reports "the tips of both great toes hurt" and that began this morning. He states increased pain with ambulation and that he is barely able to walk. Pain is worse when he ambulates. No reported temperature changes that he can perceive but he admits he has not felt his legs. He has been taking Keflex. Ultrasound 5 days ago read by Radiology with a poorly visualized right popliteal vein and it was recommended that he have repeat ultrasound in 1 week. He is currently not anticoagulated. No complaints of increased swelling, color discoloration, no history of gout. No abdominal pain, flank pain. No bowel or bladder incontinence or saddle anesthesia. PAST MEDICAL HISTORY: Chronic pain, prior history of multiple back surgeries, prior history of DVT to the right leg See nurse/triage notes for additional history if applicable Pertinent Past Surgical History: Back surgery Family History: Noncontributory Social History: Everyday smoker, , brought to the ER by his who then went to work REVIEW OF SYSTEMS: All other systems negative Constitutional: No fever, no chills, appetite change. Cardiovascular: No chest pain, no palpitations. Respiratory: No cough, no shortness of breath. Gastrointestinal: No abdominal pain, no vomiting, diarrhea. Genitourinary: No hematuria, dysuria, flank pain, pelvic pain Musculoskeletal: Chronic back pain, positive for bilateral lower leg pain and great toe pain myalgias. Skin: No rashes, color change. Neurological: No headache, dizziness, weakness. PHYSICAL EXAM: General Appearance: Alert, oriented, appropriate, cooperative, laying in the bed but reports he is in pain. Vital signs stable, afebrile. Respiratory: There are no retractions, lungs are clear to auscultation. Cardiac: Regular rate and rhythm, no murmurs or gallops. Gastrointestinal: Abdomen is soft, nontender, bowel sounds normal, no masses/ hernia, no rigidity, guarding or focal peritoneal findings. Intact femoral pulses bilaterally Neurological: [ Alert and oriented x 3, CN 2-12 grossly intact gait not assessed Skin: Warm, dry, no rashes, no nodules on palpation. Both feet are cool to touch but patient has warm symmetric temperature is of both legs. Reproducible pain to the tips of both toes, no swelling or suggestion of gouty arthritis.. Cap refill delayed in both great toes to 4 seconds. Palpable pedal and posterior tibialis pulses. Lower legs are symmetric and warm. No obvious pallor. Musculoskeletal: Extremities are symmetrical, limited range of motion secondary to pain, reproducible tenderness to palpation of both calves, right greater than left and distal great toes. No obvious swelling, changes consistent with chronic peripheral venous stasis Psychiatric: Patient is oriented X 3, there is no agitation. MEDICAL DECISION MAKING: Patient was seen independently. Secondary supervising physician at time of evaluation was Dr. Foss . Diagnosis: Right leg DVT. New, requires workup Summary: See Assessment and Plan for summary of ED visit Clinical lab tests: ordered / reviewed. Independent visualization of images, tracing, or specimens: Yes. Discussed patient with another provider: Dr. Foss Patient Progress: Stable for discharge. - History Smoking Status: Current every day smoker - Objective Vital Signs: Initial Vital Signs Temperature (C) 36.5 C 09/11/18 10:09 Heart Rate 70 09/11/18 10:09 Respiratory Rate 18 09/11/18 10:09 Blood Pressure 134/66 H 09/11/18 10:09 O2 Sat (%) 93 09/11/18 10:09 O2 Delivery Mode Room Air Allergies/Adverse Reactions: cephalexin monohydrate [From Keflex] Allergy (Verified 09/06/18 14:15) joint swelling prochlorperazine edisylate [From Compazine] Allergy (Verified 09/06/18 14:15) Swelling/neck, face, throat prochlorperazine maleate [From Compazine] Allergy (Verified 09/06/18 14:15) Swelling/neck, face, throat Home Medications: Medication Instructions Recorded Keflex 09/11/18 Rivaroxaban [Xarelto 15mg (*)] 15 mg PO BID #20 tab 09/11/18 Vicodin 5-300 mg Tablet 09/11/18 oxyCODONE/APAP 5/325 [Percocet 1 - 2 tab PO Q4-6PRN PRN #10 tab 09/11/18 5/325] Medications Given: Discontinued Medications Oxycodone/Acetaminophen (Percocet 5/325) 2 tab PO EDNOW ONE Stop: 09/11/18 11:08 Last Admin: 09/11/18 11:13 Dose: 2 tab Departure - Departure Disposition: Home, Routine, Self-Care Clinical Impression: DVT (deep venous thrombosis) Condition: Good Instructions: Deep Vein Thrombosis (ED) Additional Instructions: DISCHARGE INSTRUCTIONS FROM YOUR DOCTOR Thank you for visiting our emergency department today. You were treated by a physician social service assistant today and your case was reviewed with our ED Attending physician. Please keep in mind that discharge from the emergency department does not mean that there is nothing wrong - it simply means that we have not identified an emergency condition that requires further evaluation or treatment in the hospital. You should always plan to follow up with primary care for re- evaluation of your condition in the next 2-3 days. If you have been referred to a specialist, please call as soon as possible (today or tomorrow) to schedule your follow up appointment at the appropriate time. REPEAT ULTRASOUND OF THE LEG TODAY DOES SHOW DEVELOPMENT OF A NONOCCLUSIVE CLOT IN THE RIGHT POPLITEAL VEIN OF THE RIGHT LEG. THE LEFT LEG APPEARS FINE WITH NO CLOT. WE STARTED YOU ON XARELTO. THIS CAN BE MANAGED BY PRIMARY CARE AND YOU NEED TO GET AN APPOINTMENT FOR ADDITIONAL MEDICATION REFILLS. YOU MAY NEED TO BE ANTICOAGULATED FOR 3-4 MONTHS. A SMALL AMOUNT OF NARCOTIC PAIN MEDICATION WAS GIVEN TODAY BUT TO ALSO NEED TO GET REFILLS OF THIS THROUGH PRIMARY CARE. DO NOT DRIVE OR DRINK ALCOHOL WHILE TAKING NARCOTIC PAIN MEDICATION. PLEASE BE AWARE, NARCOTICS CAN CAUSE CONSTIPATION, LETHARGY, AND INCREASE YOUR RISK OF FALLING. DO NOT TAKE TYLENOL AT THE SAME TIME VICODIN OR PERCOCET. PLEASE USE YOUR WALKER TO HELP WITH AMBULATION. RETURN TO THE EMERGENCY DEPARTMENT FOR WORSENING LEG PAIN, INABILITY TO WALK, LOSS OF SENSATION TO THE FOOT OR TOES, COLOR CHANGE BETWEEN THE LEGS, COLD LEG, OR ANY OTHER CONCERNS. People present with illnesses and injuries in different ways, and it is always possible that we have missed something. You may always return for re-evaluation if symptoms worsen or if they are not improving or if you develop new/different symptoms. Again, thank you for choosing our emergency department. We hope that you feel better. Referrals: Alvin Bonds MD [Primary Care Provider] - 1-2 days without fail Prescriptions: oxyCODONE/APAP 5/325 [Percocet 5/325] 1 - 2 tab PO Q4-6PRN PRN #10 tab PRN Reason: Pain, Breakthrough Rivaroxaban [Xarelto 15mg (*)] 15 mg PO BID #20 tab
== END 2018-09-11 12:26 | disposition home or self-care (01) ==
DX: I82.4Z1 Acute embolism and thrombosis of unspecified deep veins of right distal lower extremity (principal)

== ENCOUNTER → 2018-09-21 | Outpatient (CLI) | payer OTHER ==
[~2018-09-21] MED LIST changes: +GADOBUTROL 10 ML VIAL IVP ONE; -IOPAMIDOL (ISOVUE-300) 100 ML BTL ONE
== END ==
LOC: FIMAGING 14:36
PROVIDERS: ATTEND Internal Medicine
DX: M54.10 Radiculopathy, site unspecified (principal); R60.0 Localized edema; M51.36 Other intervertebral disc degeneration, lumbar region
CPT/HCPCS: 72158; A9585; 82565-PO